=== PATIENT | male | born 1965 | race Caucasian/White ===

== ENCOUNTER 2018-05-17 04:40 | Emergency (ER) | payer OTHER ==
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
[2018-05-17 04:46] VITALS: BP 139/98
[2018-05-17] MEDS ORDERED: LOR5/325 PO (05:13)
[2018-05-17] MEDS ORDERED: METH-543 PO (05:13)
[2018-05-17] MEDS ORDERED: METHOCARBAMOL 500 MG TAB PO ONE (05:30)
[2018-05-17] MEDS ORDERED: ACET/HYDROC 5/325MG TH ER ONLY 2 TAB/BOTTLE PO ONE (05:30)
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
== END 2018-05-17 05:45 | disposition home or self-care (01) ==
LOC: ER 05:01
DX: S13.9XXA Sprain of joints and ligaments of unspecified parts of neck, initial encounter (principal); S29.012A Strain of muscle and tendon of back wall of thorax, initial encounter; V49.50XA Passenger injured in collision with unspecified motor vehicles in traffic accident, initial encounter
CPT/HCPCS: 72040; 72070; 99284